=== PATIENT | male | born 1950 | race Caucasian/White ===

== ENCOUNTER → 2017-03-09 | Outpatient (CLI) | payer MEDICARE ==
[~2017-03-09] MED LIST: ASPI-504 PO; ATOR10TA PO; DILT360C29 PO; GBPN300C PO; GLUC-182 PO; METO25TA60 PO; OMEP20TA PO; SIMV40TA2 PO; SOTA80TA PO
--- NOTE | 2017-03-09 09:55 | Diagnostic Imaging Report ---
INDICATION: Right-sided scrotal pain. TECHNIQUE: Scrotal sonography was performed in the routine fashion including color flow Doppler. FINDINGS: The right testicle measures 3.8 x 2.1 cm. The left testicle measures 3.3 x 1.7 cm. Both testicles contain color flow. There is a small epididymal cyst on the left side measuring about 4-5 mm. The epididymides appear symmetric and are not hypervascular. IMPRESSION: No evidence of testicular mass or torsion. Small left epididymal cyst. Dictated by: Dictated on workstation # [id number]
== END ==
LOC: RAD 08:31
PROVIDERS: ATTEND Family Medicine
DX: N50.82 Scrotal pain (principal); N50.3 Cyst of epididymis
CPT/HCPCS: 76870

== ENCOUNTER → 2017-03-15 | Outpatient (CLI) | payer MEDICARE ==
--- NOTE | 2017-03-15 16:57 | Diagnostic Imaging Report ---
TECHNIQUE: Multiplanar, multisequence MRI of the lumbar spine was performed without contrast. INDICATION: Right groin pain for the last 3 months. EXAMINATION: MRI of the lumbar spine without contrast, 03/15/2017. COMPARISON: None. FINDINGS: There is normal height and alignment of the vertebral bodies. No subluxations appreciated. Tip of the conus is unremarkable and lies at the L1-L2 level. At the L1-L2 level, there is minimal facet hypertrophy. The central canal and the neuroforamina appear unremarkable. At L2-L3, similar findings are noted. At the L3-L4 level, there is disc desiccation with a broad-based bulging disc. There is bilateral facet hypertrophy with fluid in the facet joints. Findings flatten the ventral thecal sac and there is bilateral neuroforaminal narrowing which is mild. No significant central narrowing appreciated. At L4-L5, there is disc desiccation. There is a broad-based bulging disc with bilateral facet and ligamentum flavum hypertrophy. There is bilateral neuroforaminal narrowing which is moderate. The central canal demonstrates moderate narrowing with mild narrowing of the left lateral recess but no obvious evidence for nerve root encroachment. At L5-S1, there is intervertebral disc space narrowing and disc desiccation with a right paracentral fairly prominent disc extrusion containing an annular tear. This extends towards the right lateral recess and could be causing encroachment upon the transiting right nerve root, correlate with symptoms. There is bilateral facet hypertrophy. Findings cause mild central narrowing. Bilateral neuroforaminal narrowing is seen which is moderate. There are vague areas of possible susceptibility artifact within the posterior soft tissues at this level perhaps due to previous postoperative change, correlate with history. The visualized intra-abdominal structures demonstrate no evidence for acute disease. IMPRESSION: 1. Multilevel diffuse degenerative findings as described above. Most marked findings noted at L5-S1 where there is a right paracentral disc extrusion causing right-sided lateral recess narrowing and possible encroachment upon the transiting right nerve root, correlate with symptoms. Other findings as above. Dictated by: Dictated on workstation # [id number]
== END ==
LOC: RAD 15:29
PROVIDERS: ATTEND Family Medicine
DX: R10.31 Right lower quadrant pain (principal)
CPT/HCPCS: 72148